=== PATIENT | male | born 1960 | race African-American/Black ===

== ENCOUNTER 2024-04-28 04:18 | Inpatient (IN) | payer BC, MEDICAID ==
[2024-04-28] VITALS (7 sets, daily range): BP systolic 158–184; BP diastolic 110–119; PULSE 100–122; RESP 17–22; TEMP 97.9–98.8; O2SAT 99
[~2024-04-28] VITALS: Ht 180.3 cm; Wt 88.0 kg
[2024-04-28 05:37] LABS: BASOPHILS % 0.7 % (0.0-2.0); HEMATOCRIT. 36.7 % (42.0-52.0); HEMOGLOBIN. 11.7 g/dL (14.0-18.0); LYMPHOCYTES % 30.4 % (20.0-50.0); MEAN CORPUSCULAR HEMOGLOBIN 25.6 pg (28.0-32.0); MEAN CORPUSCULAR HGB CONC 31.9 g/dL (31.0-37.0); MEAN CORPUSCULAR VOLUME 80.1 fL (80.0-94.0); MEAN PLATELET VOLUME 8.9 fl (7.4-10.4); MONOCYTES % 10.5 % (2.0-8.0); NEUTROPHILS % 56.4 % (40.0-76.0); PLATELET 187 x1000/uL (130-400); RED BLOOD CELL COUNT 4.58 mill/uL (4.7-6.1); RED CELL DISTRIBUTION WIDTH 19.6 % (11.6-14.6); WHITE BLOOD COUNT 8.1 x1000/uL (4.5-11.0)
[2024-04-28 05:38] LABS: CHLORIDE 106 mEq/L (98-107); POTASSIUM 4.4 mEq/L (3.5-5.1); SODIUM 140 mEq/L (136-145)
[2024-04-28 05:39] LABS: CARBON DIOXIDE 28 mEq/L (21-32)
[2024-04-28 05:40] LABS: CALCIUM 9.4 mg/dL (8.7-10.4)
[2024-04-28 05:44] LABS: CREATININE 0.9 mg/dL (0.6-1.3); GLUCOSE 287 mg/dL (70-105); UREA NITROGEN BLOOD 15 mg/dL (9-23)
[2024-04-28 05:45] LABS: TROPONIN I HIGH SENSITIVITY 12 ng/L (3.0-53)
[2024-04-28] MEDS: ALBUTEROL (0.083%) 2.5MG/3ML NEB HHN STA (05:45)
[2024-04-28] MEDS: IPRATROPIUM BROMIDE (0.02%) 0.5MG/2.5ML NEB HHN STA (05:46)
[2024-04-28 06:00] LABS: PROTHROMBIN TIME 11.2 sec (9.6-11.0)
[2024-04-28] MEDS: MAGNESIUM/ALUMINUM HYDROXIDE/SIMETHICONE 30ML UDC PO ONE (06:30)
[2024-04-28] MEDS: DILTIAZEM HCL 5MG/ML 5ML VIAL IV ONE (06:57)
[2024-04-28 07:54] LABS: TROPONIN I HIGH SENSITIVITY 13 ng/L (3.0-53)
[2024-04-28 08:47] LABS: TROPONIN I HIGH SENSITIVITY 9 ng/L (3.0-53)
[2024-04-28] MEDS: MAGNESIUM/ALUMINUM HYDROXIDE/SIMETHICONE 30ML UDC PO NR (09:32)
[2024-04-28] MEDS ORDERED: ONDANSETRON HCL 4MG/2ML INJ IV PRN (10:15)
[2024-04-28] MEDS ORDERED: DEXTROSE 50% WATER 50ML SYRINGE IV PRN (10:15)
[2024-04-28] MEDS ORDERED: ACETAMINOPHEN 325MG TABLET PO PRN ×2 (10:15)
[2024-04-28] MEDS ORDERED: IPRATROPIUM/ALBUTEROL 0.5-3(2.5)MG/3ML NEB HHN PRN (10:15)
[2024-04-28] MEDS: METOPROLOL TARTRATE 50MG TABLET PO SCH (11:00)
[2024-04-28] MEDS ORDERED: FURO20TA4 PO (11:24)
[2024-04-28] MEDS ORDERED: CEPH250C2 PO (11:24)
[2024-04-28] MEDS ORDERED: TAMS-11 PO (11:24)
[2024-04-28] MEDS ORDERED: RIVA20TA PO (11:24)
[2024-04-28] MEDS ORDERED: NITR0.4T49 SL (11:24)
[2024-04-28] MEDS ORDERED: INSU100I28 SQ (11:24)
[2024-04-28] MEDS ORDERED: APIX5TAB PO (11:24)
[2024-04-28] MEDS ORDERED: ASPI-1497 PO (11:24)
[2024-04-28] MEDS ORDERED: METH-371 PO (11:24)
[2024-04-28] MEDS ORDERED: ATOR10TA69 PO (11:24)
[2024-04-28] MEDS ORDERED: LISI10TA26 PO (11:24)
[2024-04-28] MEDS ORDERED: POTA10CA83 PO (11:24)
[2024-04-28] MEDS ORDERED: COR12 PO (11:24)
[2024-04-28] MEDS ORDERED: *PATIENT'S OWN MEDICATION STORAGE XX SCH (11:45)
[2024-04-28] MEDS: BLOOD SUGAR DIAGNOSTIC STRIP TEST SCH (11:50)
[2024-04-28] MEDS: INSULIN LISPRO 100 UNITS/ML SUBCUT SCH (11:50)
[2024-04-28 13:17] LABS: CLARITY URINE CLEAR (CLEAR); COLOR URINE YELLOW (YELLOW); GLUCOSE URINE 3+ (NEGATIVE); KETONES URINE NEGATIVE (NEGATIVE); LEUKOCYTE ESTERASE URINE NEGATIVE (NEGATIVE); NITRITE URINE NEGATIVE (NEGATIVE); OCCULT BLOOD URINE TRACE (NEGATIVE); PROTEIN URINE 1+ (NEGATIVE); SPECIFIC GRAVITY URINE 1.028 (1.005-1.030); UROBILINOGEN URINE 0.2 E.U./dL (0.2-1.0)
[2024-04-28 13:40] LABS: CREATINE KINASE MB FRACTION 2.1 ng/mL (0.5-3.6)
[2024-04-28 13:43] LABS: SQUAMOUS EPITHELIAL CELL URINE RARE /lpf (RARE/1+)
[2024-04-28 13:44] LABS: BACTERIA URINE TRACE; RBC URINE 0-2 /hpf (0-2); WBC URINE 0-2 /hpf (0-2)
[2024-04-28] MEDS: ENOXAPARIN 150MG/ML SYR SUBCUT SCH (14:08)
[2024-04-28] MEDS: ALPRAZOLAM 0.5 MG TABLET PO NR (14:08)
[2024-04-28] MEDS: METHYLPREDNISOLONE SOD SUCC 40MG/ML (ACT-O-VIAL) IV SCH (14:08)
[2024-04-28 14:13] LABS: *AMPHETAMINES SCREEN URINE NEGATIVE (NEGATIVE); *BARBITURATES SCREEN URINE NEGATIVE (NEGATIVE); *BENZODIAZEPINES SCREEN URINE NEGATIVE (NEGATIVE); *COCAINE SCREEN URINE NEGATIVE (NEGATIVE); METHADONE URINE SCREEN NEGATIVE (NEGATIVE); OPIATES URINE SCREEN NEGATIVE (NEGATIVE); PHENCYCLIDINE URINE SCREEN NEGATIVE (NEGATIVE)
[2024-04-28 14:14] LABS: CANNABINOID URINE SCREEN NEGATIVE (NEGATIVE); ECSTASY MDMA SCREEN URINE NEGATIVE (NEGATIVE)
[2024-04-28] MEDS: IPRATROPIUM/ALBUTEROL 0.5-3(2.5)MG/3ML NEB HHN SCH (16:53)
[2024-04-28] MEDS: CLONIDINE 0.1MG TABLET PO PRN (17:55)
[2024-04-29] VITALS (11 sets, daily range): BP systolic 155–177; BP diastolic 99–119; PULSE 66–116; RESP 18–24; TEMP 97.5–98.2
[2024-04-29] MEDS: FUROSEMIDE 40MG/4ML VIAL IVP SCH (08:57)
[2024-04-29] MEDS ORDERED: FUROSEMIDE 40MG/4ML VIAL IVP SCH (09:00)
[2024-04-29] MEDS ORDERED: DEXTROSE 50% WATER 50ML SYRINGE IV PRN (11:45)
[2024-04-29] MEDS: DOCUSATE SODIUM 100MG CAPSULE PO PRN (11:58)
[2024-04-29] MEDS: INSULIN LISPRO 100 UNITS/ML SUBCUT NR ×2 (11:59→17:36)
[2024-04-29] MEDS: INSULIN LISPRO 100 UNITS/ML SUBCUT SCH (12:00)
[2024-04-29] MEDS: DILTIAZEM HCL 30MG TABLET PO SCH (15:15)
[2024-04-29] MEDS: ENOXAPARIN 100MG/ML SYR SUBCUT SCH (17:37)
[2024-04-29] MEDS ORDERED: INSULIN GLARGINE 100 UNITS/ML SUBCUT SCH (21:00)
[2024-04-29] MEDS: INSULIN GLARGINE 100 UNITS/ML SUBCUT SCH (22:14)
[2024-04-30] VITALS (12 sets, daily range): BP systolic 135–165; BP diastolic 80–99; PULSE 73–118; RESP 18–20; TEMP 97.2–98.2; O2SAT 96–98
[2024-04-30] MEDS: HYDRALAZINE 20MG/ML VIAL IV PRN (01:57)
[2024-04-30 07:13] LABS: CHLORIDE 104 mEq/L (98-107); POTASSIUM 5.2 mEq/L (3.5-5.1); SODIUM 134 mEq/L (136-145)
[2024-04-30 07:14] LABS: CARBON DIOXIDE 22 mEq/L (21-32)
[2024-04-30 07:15] LABS: CALCIUM 9.8 mg/dL (8.7-10.4)
[2024-04-30 07:19] LABS: UREA NITROGEN BLOOD 19 mg/dL (9-23)
[2024-04-30 07:58] LABS: GLUCOSE 487 mg/dL (70-105)
[2024-04-30 08:37] LABS: BASOPHILS % 0.2 % (0.0-2.0); DIFFERENTIAL COMMENT 0; HEMOGLOBIN. 11.4 g/dL (14.0-18.0); MEAN CORPUSCULAR HEMOGLOBIN 25.1 pg (28.0-32.0); MEAN CORPUSCULAR HGB CONC 31.6 g/dL (31.0-37.0); MEAN CORPUSCULAR VOLUME 79.6 fL (80.0-94.0); MEAN PLATELET VOLUME 9.8 fl (7.4-10.4); MONOCYTES % 3.1 % (2.0-8.0); NEUTROPHILS % 88.7 % (40.0-76.0); PLATELET 183 x1000/uL (130-400); RED BLOOD CELL COUNT 4.52 mill/uL (4.7-6.1); RED CELL DISTRIBUTION WIDTH 19.6 % (11.6-14.6); WHITE BLOOD COUNT 13.6 x1000/uL (4.5-11.0)
[2024-04-30] MEDS: FAMOTIDINE 20MG TABLET PO SCH (12:09)
[2024-04-30] MEDS: INSULIN LISPRO 100 UNITS/ML SUBCUT NR (12:39)
[2024-04-30] MEDS: INSULIN GLARGINE 100 UNITS/ML SUBCUT NR (12:40)
[2024-04-30] MEDS: METOLAZONE 2.5MG TABLET PO NR (17:51)
[2024-04-30] MEDS: FUROSEMIDE 100MG/10ML VIAL IVP SCH (18:00)
[2024-04-30] MEDS: INSULIN GLARGINE 100 UNITS/ML SUBCUT SCH (22:32)
[2024-05-01] VITALS (9 sets, daily range): BP systolic 135–157; BP diastolic 78–104; PULSE 83–122; RESP 17–20; TEMP 96.7–97.9; O2SAT 96–100
[2024-05-01] MEDS: INSULIN LISPRO 100 UNITS/ML SUBCUT NR (13:39)
[2024-05-01] MEDS ORDERED: LOSA50TA41 MT (18:31)
[2024-05-01] MEDS ORDERED: APIX5TAB PO (18:31)
[2024-05-01] MEDS ORDERED: METO100T16 MT (18:31)
[2024-05-01] MEDS ORDERED: LANTUSUD SUBCUT (18:31)
[2024-05-01] MEDS ORDERED: FURO80TA87 MT (18:32)
[2024-05-01] MEDS ORDERED: METOLAZONE 2.5MG TABLET PO NR (18:33)
[2024-05-01] MEDS: INSULIN GLARGINE 100 UNITS/ML SUBCUT SCH (22:20)
[2024-05-02] VITALS (7 sets, daily range): BP systolic 117–178; BP diastolic 76–120; PULSE 86–124; RESP 18–20; TEMP 97.4–97.9; O2SAT 97
== END 2024-05-02 17:10 | disposition home or self-care (01) | DRG 291 ==
LOC: ER 04:18 → 5WST 07:19 → EDBEDREQTM 07:42 → EDBEDREQ 07:42 → 8WST 10:56
PROVIDERS: ADMIT Internal Medicine; ATTEND Internal Medicine
DX: I11.0 Hypertensive heart disease with heart failure (principal); I50.23 Acute on chronic systolic (congestive) heart failure; Z59.00 Homelessness unspecified; R06.03 Acute respiratory distress; R00.0 Tachycardia, unspecified; E11.9 Type 2 diabetes mellitus without complications; I48.91 Unspecified atrial fibrillation; D64.9 Anemia, unspecified; E66.9 Obesity, unspecified; J44.89 Other specified chronic obstructive pulmonary disease; Z85.038 Personal history of other malignant neoplasm of large intestine; Z79.01 Long term (current) use of anticoagulants
CPT/HCPCS: 36415; 71045; 80048; 80305; 81003; 82550; 82553; 82962; 83036; 83880; 84484; 85025; 85379; 93005; 93306; 93970; 94640; 97116; 97162; 99285; J0360; J1650; J1815; J1940; J2920; J3490